=== PATIENT | female | born 1955 | race Caucasian/White ===

== ENCOUNTER → 2016-11-18 | Outpatient (CLI) | payer MEDICAID, MEDICARE | LOC: WI 14:17 | PROVIDERS: ATTEND Physician Assistant | DX: Z12.31 Encounter for screening mammogram for malignant neoplasm of breast (principal) | CPT/HCPCS: 77067; G0202 ==

== ENCOUNTER 2017-10-15 14:31 | Emergency (ER) | payer MEDICARE, MEDICAID ==
[2017-10-15 14:59] VITALS: BP 107/80
--- NOTE | 2017-10-15 15:31 | ER Document Report ---
ED Medical Screen (RME) - General Chief Complaint: Fall Injury Stated Complaint: FALL/LEFT KNEE PAIN Time Seen by Provider: 10/15/17 15:29 Mode of Arrival: Wheelchair Information source: Patient Notes: Pt tripped and fell in her house, tripped on something, hurt her left knee. no n /t, no radiating pain, no dizziness, etc. TRAVEL OUTSIDE OF THE [place] IN LAST 30 DAYS: No - Related Data Allergies/Adverse Reactions: ibuprofen [Ibuprofen] Allergy (Verified 10/15/17 14:32) Vomiting Past Medical History - General Information source: Patient - Past Medical History Cardiac Medical History: Reports: Hx Hypercholesterolemia, Hx Hypertension Pulmonary Medical History: Denies: Hx Tuberculosis Endocrine Medical History: Reports: Hx Diabetes Mellitus Type 2 Psychiatric Medical History: Reports: Hx Depression Denies: Hx Bipolar Disorder, Hx Post Traumatic Stress Disorder, Hx Schizophrenia Past Surgical History: Reports: Hx Orthopedic Surgery - rt knee, lt hand, lt shoulder cysts. Denies: Hx Appendectomy, Hx Bowel Surgery, Hx Section , Hx Cholecystectomy, Hx Coronary Artery Bypass Graft, Hx Gastric Bypass Surgery , Hx Herniorrhaphy, Hx Hysterectomy, Hx Mastectomy, Hx Pacemaker, Hx Tubal Ligation - Immunizations Hx Diphtheria, Pertussis, Tetanus Vaccination: Yes Review of Systems - Review of Systems Musculoskeletal: See HPI Physical Exam - Vital signs Vitals: Temp Pulse Resp BP Pulse Ox 98.0 F 55 L 14 107/80 97 10/15/17 14:57 10/15/17 14:57 10/15/17 14:57 10/15/17 14:57 10/15/17 14:57 - Notes Notes: general: nad extremities: tender to anterior left knee, no ramirez's cyst noted Course - Vital Signs Vital signs: Temp Pulse Resp BP Pulse Ox 98.0 F 55 L 14 107/80 97 10/15/17 14:57 10/15/17 14:57 10/15/17 14:57 10/15/17 14:57 10/15/17 14:57
--- NOTE | 2017-10-15 16:05 | ER Document Report ---
HPI - HPI Patient complains to provider of: knee pain Pain Level: 5 Context: Patient is 62-year-old female who presents with left knee pain after a fall. Patient is a history of arthritis in the sleep. She has been able to bear weight on it but with pain. Pain worse with movement. She has not taken anything for pain prior to arrival. History of diabetes, Hypertension - REPRODUCTIVE Reproductive: DENIES: : Past Medical History - General Information source: Patient - Social History Smoking Status: Smoker,Current Status Unk Family History: Reviewed & Not Pertinent - Past Medical History Cardiac Medical History: Reports: Hx Hypercholesterolemia, Hx Hypertension Pulmonary Medical History: Denies: Hx Tuberculosis Endocrine Medical History: Reports: Hx Diabetes Mellitus Type 2 Psychiatric Medical History: Reports: Hx Depression Denies: Hx Bipolar Disorder, Hx Post Traumatic Stress Disorder, Hx Schizophrenia Past Surgical History: Reports: Hx Orthopedic Surgery - rt knee, lt hand, lt shoulder cysts. Denies: Hx Appendectomy, Hx Bowel Surgery, Hx Section , Hx Cholecystectomy, Hx Coronary Artery Bypass Graft, Hx Gastric Bypass Surgery , Hx Herniorrhaphy, Hx Hysterectomy, Hx Mastectomy, Hx Pacemaker, Hx Tubal Ligation - Immunizations Hx Diphtheria, Pertussis, Tetanus Vaccination: Yes Hx Pneumococcal Vaccination: 12/13/11 Vertical Provider Document - CONSTITUTIONAL Agree With Documented VS: Yes Notes: PHYSICAL EXAM GENERAL: Alert, interacts well. EXTREMITIES: Moves all extremities spontaneously negative anterior posterior drawer test. Hip full range of motion nontender. Ankle full range of motion nontender no evidence of deformity guarding of the left knee. Full range of motion . No edema, radial and dorsalis pedis pulses 2/4 bilaterally. No cyanosis. NEUROLOGICAL: Alert and oriented x4. Normal speech. PSYCH: Normal affect, normal mood. SKIN: Warm, dry, normal turgor. No rashes or lesions noted. - INFECTION CONTROL TRAVEL OUTSIDE OF THE [place] IN LAST 30 DAYS: No - RESPIRATORY O2 Sat by Pulse Oximetry: 97 Course - Re-evaluation Re-evalutation: 10/15/17 16:43 Patient is 62-year-old female who is hemodynamically stable, no acute distress with a history of osteoarthritis in this affected knee. No evidence of a septic joint, gout flare, dislocation, or fracture on exam and imaging. Vitals wnl. At this time, I do not see an indication for labs or further imaging.Patient is declining crutches at this time. Will discharge with conservative measures, return precautions, and follow-up recommendations. - Vital Signs Vital signs: Temp Pulse Resp BP Pulse Ox 98.0 F 55 L 14 107/80 97 10/15/17 14:57 10/15/17 14:57 10/15/17 14:57 10/15/17 14:57 10/15/17 14:57 - Diagnostic Test Radiology reviewed: Image reviewed, Reports reviewed Discharge - Discharge Clinical Impression: Knee pain Qualifiers: Chronicity: chronic Laterality: left Qualified Code(s): M25.562 - Pain in left knee; G89.29 - Other chronic pain; G89.29 - Other chronic pain Condition: Good Disposition: HOME, SELF-CARE Instructions: Arthritis ([facility]), Ice & Elevation ([facility]) Prescriptions: Naproxen [Naprosyn 375 Mg Tablet] 375 mg PO BID #20 tablet
--- NOTE | 2017-10-15 16:13 | RADIOLOGY REPORT (SQ) ---
EXAM DESCRIPTION: KNEE LEFT 4 VIEW COMPLETED DATE/TIME: 10/15/2017 3:59 pm REASON FOR STUDY: left knee pain COMPARISON: None. NUMBER OF VIEWS: Four views. TECHNIQUE: AP, lateral, and both oblique radiographic images acquired of the left knee. LIMITATIONS: None. FINDINGS: MINERALIZATION: Osteopenia. BONES: No acute fracture or dislocation. No worrisome bone lesions. JOINT: Severe tricompartmental degenerative changes involving predominantly the patellofemoral medial compartments. Small joint effusion. SOFT TISSUES: No soft tissue swelling. No radio-opaque foreign body. OTHER: No other significant finding. IMPRESSION: Severe tricompartmental degenerative changes with small joint effusion. No evidence of acute osseous injury. TECHNICAL DOCUMENTATION: JOB ID: [id number] [employer]- All Rights Reserved
[2017-10-15] MEDS ORDERED: NAPROXEN 375 MG TABLET PO ONE (16:45)
[2017-10-15] MEDS ORDERED: ACETAMINOPHEN 325 MG TABLET PO ONE (18:07)
== END 2017-10-15 18:00 | disposition home or self-care (01) ==
LOC: ER 14:31
DX: M17.12 Unilateral primary osteoarthritis, left knee (principal); M25.562 Pain in left knee; G89.29 Other chronic pain; E11.9 Type 2 diabetes mellitus without complications; I10 Essential (primary) hypertension
CPT/HCPCS: 99283; 73562; A9270

== ENCOUNTER 2017-11-07 08:05 | Inpatient (IN) | payer MEDICARE, MEDICAID ==
--- NOTE | 2017-10-26 13:56 | RADIOLOGY REPORT (SQ) ---
EXAM DESCRIPTION: CHEST PA/LATERAL COMPLETED DATE/TIME: 10/26/2017 1:39 pm REASON FOR STUDY: PRE OP COMPARISON: December 2011 EXAM PARAMETERS: NUMBER OF VIEWS: two views TECHNIQUE: Digital Frontal and Lateral radiographic views of the chest acquired. RADIATION DOSE: NA LIMITATIONS: none FINDINGS: LUNGS AND PLEURA: No opacities, masses or pneumothorax. No pleural effusion. MEDIASTINUM AND HILAR STRUCTURES: No masses or contour abnormalities. HEART AND VASCULAR STRUCTURES: Heart normal size. No evidence for failure. BONES: No acute findings. HARDWARE: None in the chest. OTHER: No other significant finding. IMPRESSION: NO SIGNIFICANT RADIOGRAPHIC FINDING IN THE CHEST. TECHNICAL DOCUMENTATION: JOB ID: [id number] [employer]- All Rights Reserved
[2017-11-03 19:18] LABS: APPEARANCE,URINE TURBID; BILIRUBIN,URINE NEGATIVE (NEGATIVE); GLUCOSE, URINE >=500 mg/dL (NEGATIVE); KETONES,URINE NEGATIVE (NEGATIVE); LEUKOCYTE ESTERASE,URINE SMALL (NEGATIVE); NITRITE,URINE NEGATIVE (NEGATIVE); PROTEIN,URINE NEGATIVE (NEGATIVE); URINE SPECIFIC GRAVITY 1.021; UROBILINOGEN,URINE NEGATIVE mg/dL (<2.0)
[2017-11-03 19:19] LABS: COLOR,URINE LIGHT YELLOW
--- NOTE | 2017-11-04 22:36 | Physician Advisory Note ---
Physician Advisor ProgressNote .: Pursuant to the plan for [facility], I have reviewed the medical record for this patient. Physician Advisor Statement: Nice documentation of pt's functional disability, options tried, x-ray findings , showing indication for surgery - & ongoing pain worsened by ADLs. Please make sure to document: 1. What can patient NOT DO BECAUSE OF HER KNEE PAIN, or what ADLs are INTERFERED WITH BY HER KNEE PAIN? (Payers don't just want to know what causes more pain - they want to hear that the patient's FUNCTION is impaired - before agreeing to pay for surgery.) 2. "I do not expect this patient will be able to recover quickly enough for safe discharge in less than 2 midnights because " (& each day's note needs to give specifics on clinical reasons pt isn't yet safe for d/c: "need to continue to monitor ", "I AM CONCERNED ABOUT ", "high risk for ", ...) Status: 62yo with super-morbid obesity/BMI 52.4, DM-2 w/peripheral neuropathy, hyperlipidemia, depression, Lt knee arthroscopy, with PROMIS function score of 26 - significantly limited climbing 1 flight of stairs or bending/kneeling, even difficulty getting on & off a toilet. Was borderline anemic at last check (2011) here with Hgb 12.1. This patient clearly has a significantly increased anesthesia risk, along with significant co-morbidities, and has a strong chance of needing rehab stay after surgery. Appropriate to start in Inpatient status. Thanks! CK
[~2017-11-07 08:05] MED LIST: BUPIVACAINE INJ/PF LIPOSOME/PF 266 MG/20 ML SDV IJ PRN; BUPIVACAINE INJ/PF LIPOSOME/PF 266 MG/20 ML SDV ONE; CEFAZOLIN INJ 1 GM VIAL IV PRN; IBUPROFEN 800 MG/NS 250 ML IV PRN; LACTATED RINGERS 1000 ML IV PRN; LANSOPRAZOLE 15 MG TAB.RAP.DR PO PRN; OXYCODONE HCL SR 10 MG TABLET PO PRN; RINGERS SOLUTION,LACTATED 1,000 ML IV PRN; THROMBIN (BOVINE) 5000 UNIT EPITAXIS KIT ONE; THROMBIN (BOVINE) TOPICAL 20000 UNIT VIAL ONE; VANCOMYCIN HCL 1,000 MG in DEXTROSE 5%-WATER 250 ML IV PRN
[2017-11-07] MEDS ORDERED: MIDAZOLAM 2 MG/2 ML INJ ONE ×2 (08:52)
[2017-11-07] MEDS ORDERED: FENTANYL CITRATE INJ/PF 100 MCG/2 ML AMPUL ONE ×2 (08:52)
[2017-11-07] MEDS ORDERED: EPHEDRINE SULFATE INJ 50 MG/1 ML AMPULE ONE (08:52)
[2017-11-07] MEDS ORDERED: TRANEXAMIC ACID INJ/PF 1,000 MG/10 ML SDV IV ONE ×2 (08:53→13:00)
[2017-11-07] MEDS ORDERED: PROPOFOL INJ 200 MG/20 ML VIAL IV ONE (08:53)
[2017-11-07] MEDS ORDERED: ONDANSETRON HCL INJ/PF 4 MG/2 ML SDV ONE (08:53)
[2017-11-07] MEDS ORDERED: DIPHENHYDRAMINE HCL 50 MG/ML VIAL IV PRN ×2 (10:08→11:22)
[2017-11-07] MEDS ORDERED: FENTANYL CITRATE INJ/PF 100 MCG/2 ML AMPUL IV PRN ×3 (10:08)
[2017-11-07] MEDS ORDERED: WALKER MC PRN (11:20)
--- NOTE | 2017-11-07 11:20 | Operative Report ---
Operative Report DATE OF SURGERY: 11/07/17 PREOPERATIVE DIAGNOSIS: Left knee arthritis OPERATION: Left knee arthroplasty SURGEON: WILMER MOREJON 1ST FLOW MACHINE OPERATOR: ZENAIDA WALLACE ANESTHESIA: Spinal TISSUE REMOVED OR ALTERED: Bone to pathology ESTIMATED BLOOD LOSS: 100 PROCEDURE: Implants used: Femur: Riddhi triathlon size 5 CR femur Tibia: 6 tibia Tibial liner: 9 mm CS insert Patella: 35 mm oval patella Procedure with the patient supine on the operating table the left the limb is prepped and draped in a sterile fashion. The limb was elevated for exsanguination and the tourniquet inflated to 280 torr. A standard midline median parapatellar approach the knee is taken. Access is gained to the femoral canal through the intercondylar notch. Intramedullary alignment instrumentation used to resect 10 mm of distal femur in 5 of valgus. Sizing guide indicated a size 5 femur. Appropriate cutting jig is then used to fashion anterior posterior and chamfer cuts. A trial reduction femurs performed and this is judged to be adequate. Attention was next turned to the tibia. Using an extra medullary alignment system 9 millimeters was resected off the lateral tibial plateau. This is sized to a size 6 tibia. A trial reduction was now performed with a 5 femur and a 6 tibia using a 9 millimeters spacer. It is full extension and central patellofemoral tracking. The articular surface the patella was next resected using an oscillating saw. All trial implants were removed. Polymethylmethacrylate is mixed and used to cement the above implants in place. On adequate curing the cement excess cement was removed the tourniquet was deflated hemostasis obtained the wound is then closed in layers using interrupted Vicryl followed by dorothy. A sterile compressive dressing was applied and the patient returned to recovery room in satisfactory condition.
[2017-11-07] MEDS ORDERED: MORPHINE SULFATE 10 MG/ML INJ IV PRN ×2 (11:22)
[2017-11-07] MEDS ORDERED: ZOLPIDEM TARTRATE 5 MG TABLET PO PRN (11:22)
[2017-11-07] MEDS ORDERED: MAG HYDROX/AL HYDROX/SIMETH SUSP 30 ML UDCUP PO PRN (11:22)
[2017-11-07] MEDS ORDERED: ONDANSETRON HCL INJ/PF 4 MG/2 ML SDV IV PRN (11:22)
[2017-11-07] MEDS ORDERED: MORPHINE SULFATE 10 MG/ML INJ IM PRN (11:22)
[2017-11-07] MEDS ORDERED: ONDANSETRON 4 MG TAB.RAPDIS PO PRN (11:22)
[2017-11-07] MEDS ORDERED: OXYCODONE HCL IR 5 MG TABLET PO PRN (11:22)
--- NOTE | 2017-11-07 12:22 | RADIOLOGY REPORT (SQ) ---
EXAM DESCRIPTION: KNEE LEFT 2 VIEWS COMPLETED DATE/TIME: 11/07/2017 12:10 pm REASON FOR STUDY: Post OP -Long Cassette in PACU M17.12 UNILATERAL PRIMARY OSTEOARTHRITIS, LEFT KNE E COMPARISON: None. NUMBER OF VIEWS: Two view(s). TECHNIQUE: Digital radiographic images of the left knee post-procedure. LIMITATIONS: None. FINDINGS: BONES: No worrisome or unexpected findings post-procedure. DEVICE: Total knee arthroplasty. SOFT TISSUES: No worrisome findings. Expected postoperative soft tissue changes. IMPRESSION: SATISFACTORY POSTOPERATIVE LEFT KNEE. TECHNICAL DOCUMENTATION: JOB ID: [id number] [employer]- All Rights Reserved
--- NOTE | 2017-11-07 12:51 | EKG REPORT ---
SEVERITY:- ABNORMAL ECG - SINUS RHYTHM INCOMPLETE LEFT BUNDLE BRANCH BLOCK LEFT VENTRICULAR HYPERTROPHY ANTERIOR Q WAVES, POSSIBLY DUE TO LVH : Confirmed by: Janak Sloan MD 07-Nov-2017 12:50:39
[2017-11-07] MEDS: GABAPENTIN 300 MG CAPSULE PO SCH ×2 (13:48→21:18)
[2017-11-07] MEDS ORDERED: ACETAMINOPHEN 100 ML IV ONE (17:22)
[2017-11-07] MEDS: MORPHINE SULFATE 10 MG/ML INJ IV PRN ×2 (18:07→22:36)
[2017-11-07] MEDS: GLIPIZIDE XL 5 MG TAB.ER.24 PO SCH (21:18)
[2017-11-07] MEDS: METFORMIN HCL 500 MG TABLET PO SCH (21:18)
[2017-11-07] MEDS: OXYCODONE HCL SR 10 MG TABLET PO SCH (21:18)
[2017-11-07] MEDS ORDERED: VANCOMYCIN HCL 1,000 MG in DEXTROSE 5%-WATER 250 ML IV ONE (23:00)
[2017-11-08] MEDS: MORPHINE SULFATE 10 MG/ML INJ IV PRN ×3 (01:58→08:43)
[2017-11-08] MEDS ORDERED: ACETAMINOPHEN 325 MG TABLET PO PRN (02:00)
[2017-11-08] MEDS: LANSOPRAZOLE 30 MG TAB.RAP.DR PO SCH (05:38)
[2017-11-08] MEDS: LEVOTHYROXINE SODIUM 0.05 MG TABLET PO SCH (05:38)
[2017-11-08] MEDS: GABAPENTIN 300 MG CAPSULE PO SCH ×3 (05:38→22:03)
--- NOTE | 2017-11-08 06:46 | PDOC PROGRESS REPORT ---
Subjective Progress Note for:: 11/08/17 Reason For Visit: M17.12 UNILATERAL PRIMARY OSTEOARTHRITIS, LEFT KN 62-year-old white female postop day #1 status post left knee arthroplasty Physical Exam Vital Signs: Temp Pulse Resp BP Pulse Ox 36.7 C 76 20 107/71 98 11/08/17 00:00 11/08/17 00:00 11/08/17 00:00 11/08/17 00:00 11/08/17 00:00 Intake & Output 11/06/17 11/07/17 11/08/17 06:59 06:59 06:59 Intake Total 4050 Output Total 2049 Balance 2000 General appearance: PRESENT: mild distress Head exam: PRESENT: normocephalic Respiratory exam: PRESENT: unlabored Cardiovascular exam: PRESENT: RRR Pulses: PRESENT: +1 pedal pulses bilateral Vascular exam: PRESENT: normal capillary refill GI/Abdominal exam: PRESENT: soft Rectal exam: PRESENT: deferred Extremities exam: PRESENT: other - Left lower extremity dressing clean dry and intact. Distal neurovascular examination is intact. Neurological exam: PRESENT: alert, awake, oriented to person, oriented to place , oriented to time, oriented to situation. ABSENT: motor sensory deficit Psychiatric exam: PRESENT: appropriate affect, normal mood. ABSENT: homicidal ideation, suicidal ideation Skin exam: PRESENT: dry, intact, warm. ABSENT: cyanosis, rash Results Impressions: Chest X-Ray 10/26/17 11:27 IMPRESSION: NO SIGNIFICANT RADIOGRAPHIC FINDING IN THE CHEST. Knee X-Ray 11/07/17 11:23 IMPRESSION: SATISFACTORY POSTOPERATIVE LEFT KNEE. Status: Imported from PACS Assessment & Plan - Diagnosis (1) Arthritis of left knee Is this a current diagnosis for this admission?: Yes Plan: 62-year-old female postop day 1 from left knee arthroplasty. Patient ambulated only 10 feet yesterday. Anticipate discharge home when her functional capacity permits. (2) Diabetes Plan: Blood glucoses approximately 179. Diabetes is reasonably well controlled on current sliding scale. - Time Time Spent with patient: 15-24 minutes Anticipated discharge: Home with Homehealth Within: within 24 hours
[2017-11-08 07:02] LABS: HEMATOCRIT 35.5 % (36.0-47.0); HEMOGLOBIN 12.3 g/dL (12.0-15.5); MEAN CORPUSCULAR HEMOGLOBIN 31.3 pg (27.0-33.4); MEAN CORPUSCULAR HGB CONC 34.7 g/dL (32.0-36.0); MEAN CORPUSCULAR VOLUME 90 fl (80-97); PLATELET COUNT 325 10^3/uL (150-450); RED BLOOD COUNT 3.92 10^6/uL (3.72-5.28); RED CELL DISTRIBUTION WIDTH 13.6 % (11.5-14.0); WHITE BLOOD COUNT 9.1 10^3/uL (4.0-10.5)
[2017-11-08 07:17] LABS: ANION GAP 9 (5-19); BLOOD UREA NITROGEN 15 mg/dL (7-20); CALCIUM 9.5 mg/dL (8.4-10.2); CARBON DIOXIDE 26 mmol/L (22-30); CHLORIDE 100 mmol/L (98-107); GLUCOSE 175 mg/dL (75-110); POTASSIUM 4.5 mmol/L (3.6-5.0); SODIUM 134.6 mmol/L (137-145)
[2017-11-08] MEDS: GLIPIZIDE XL 5 MG TAB.ER.24 PO SCH ×2 (09:56→22:03)
[2017-11-08] MEDS: OXYCODONE HCL SR 10 MG TABLET PO SCH ×2 (09:56→22:14)
[2017-11-08] MEDS: ASPIRIN 81 MG TABLET, ENT COATED PO SCH (09:57)
[2017-11-08] MEDS: FLUOXETINE HCL 20 MG CAPSULE PO SCH (09:58)
[2017-11-08] MEDS: LISINOPRIL 5 MG TABLET PO SCH (13:37)
[2017-11-08] MEDS: OXYCODONE HCL IR 5 MG TABLET PO PRN (13:41)
[2017-11-08] MEDS ORDERED: ATORVASTATIN CALCIUM 40 MG TABLET PO SCH (22:00)
[2017-11-08] MEDS: METFORMIN HCL 500 MG TABLET PO SCH (22:14)
[2017-11-09] MEDS: OXYCODONE HCL IR 5 MG TABLET PO PRN ×2 (02:19→06:12)
[2017-11-09] MEDS: GABAPENTIN 300 MG CAPSULE PO SCH (05:56)
[2017-11-09] MEDS: LANSOPRAZOLE 30 MG TAB.RAP.DR PO SCH (05:56)
[2017-11-09] MEDS: LEVOTHYROXINE SODIUM 0.05 MG TABLET PO SCH (05:56)
[2017-11-09 06:36] LABS: HEMOGLOBIN 12.5 g/dL (12.0-15.5); MEAN CORPUSCULAR HEMOGLOBIN 30.9 pg (27.0-33.4); MEAN CORPUSCULAR HGB CONC 33.8 g/dL (32.0-36.0); MEAN CORPUSCULAR VOLUME 91 fl (80-97); PLATELET COUNT 326 10^3/uL (150-450); RED BLOOD COUNT 4.05 10^6/uL (3.72-5.28); RED CELL DISTRIBUTION WIDTH 13.6 % (11.5-14.0); WHITE BLOOD COUNT 11.6 10^3/uL (4.0-10.5)
--- NOTE | 2017-11-09 07:17 | PDOC PROGRESS REPORT ---
Subjective Progress Note for:: 11/09/17 Subjective:: 62-year-old white female 2 days status post total left knee arthroplasty. Patient sitting upright in hospital bed with bilateral lower extremities over the side. Patient reports she was comfortable overnight and was happy to receive about this morning. Reason For Visit: M17.12 UNILATERAL PRIMARY OSTEOARTHRITIS, LEFT KN Physical Exam Vital Signs: Temp Pulse Resp BP Pulse Ox 37.9 C 92 20 127/72 H 96 11/09/17 00:00 11/09/17 00:00 11/09/17 00:00 11/09/17 00:00 11/09/17 00:00 Intake & Output 11/08/17 11/09/17 11/10/17 06:59 06:59 06:59 Intake Total 4590 1468 Output Total 2050 Balance 2540 1468 Weight 142.88 kg General appearance: PRESENT: no acute distress, well-developed, well-nourished Head exam: PRESENT: atraumatic, normocephalic Respiratory exam: PRESENT: unlabored Pulses: PRESENT: normal dorsalis pedis pul, +2 pedal pulses bilateral Additional comments: Patient sitting upright with legs over side of hospital bed. Her postoperative compression dressing is clean dry and intact. This is removed and underlying OpSite dressing is clean dry and intact and this is left in place. She has minimal pedal edema and brisk capillary refill to toes on bilateral lower extremities. Her leg lengths are equal and her distal neurovascular exam is intact. Musculoskeletal exam: PRESENT: ambulatory Additional comments: Patient makes slow progress with physical therapy ambulating 70 feet independently. She will continue to work with physical therapy throughout her stay in the hospital. Neurological exam: PRESENT: alert, awake, oriented to person, oriented to place , oriented to time, oriented to situation, CN II-XII grossly intact. ABSENT: motor sensory deficit Psychiatric exam: PRESENT: appropriate affect, normal mood. ABSENT: homicidal ideation, suicidal ideation Skin exam: PRESENT: dry, intact, warm. ABSENT: cyanosis, rash Results Laboratory Results: 11/09/17 06:21 11/08/17 05:49 11/08/17 11/09/17 05:49 06:21 WBC 11.6 H RBC 4.05 Hgb 12.5 Hct 37.0 MCV 91 MCH 30.9 MCHC 33.8 RDW 13.6 Plt Count 326 Sodium 134.6 L Potassium 4.5 Chloride 100 Carbon Dioxide 26 Anion Gap 9 BUN 15 Creatinine 0.94 Est GFR ( Amer) > 60 Est GFR (Non-Af Amer) > 60 Glucose 175 H Calcium 9.5 Impressions: Chest X-Ray 10/26/17 11:27 IMPRESSION: NO SIGNIFICANT RADIOGRAPHIC FINDING IN THE CHEST. Knee X-Ray 11/07/17 11:23 IMPRESSION: SATISFACTORY POSTOPERATIVE LEFT KNEE. Assessment & Plan - Diagnosis (1) Arthritis of left knee Is this a current diagnosis for this admission?: Yes - Plan Summary Plan Summary: 62-year-old white female 2 days status post total left knee arthroplasty. Patient's compression dressing is removed and underlying OpSite dressing is clean dry and intact and is left in place. She makes slow progress with physical therapy ambulating 70 feet independently. She will continue to work with physical therapy throughout her stay at the hospital. Patient has tentatively made the decision to be discharged to a fdc facility. At this time she is not fully committed to the fdc facility or being discharged to her home. Discharge planning and nursing staff were advised to clinical mental health counselor patient on risks and benefits of these possibilities. She will make her decision by the end of the day and will likely be discharged to either fdc facility or her home tomorrow.
[2017-11-09] MEDS: OXYCODONE HCL SR 10 MG TABLET PO SCH (10:11)
[2017-11-09] MEDS: ASPIRIN 81 MG TABLET, ENT COATED PO SCH (10:12)
[2017-11-09] MEDS: GLIPIZIDE XL 5 MG TAB.ER.24 PO SCH (10:12)
[2017-11-09] MEDS: FLUOXETINE HCL 20 MG CAPSULE PO SCH (10:12)
[2017-11-09] MEDS: LISINOPRIL 5 MG TABLET PO SCH (10:13)
[2017-11-09 12:21] VITALS: BP 110/68
--- NOTE | 2017-11-11 06:47 | PDOC DISCHARGE SUMMARY ---
Discharge Summary (SDC) - Discharge Final Diagnosis: Left knee arthritis Date of Surgery: 11/07/17 Discharge Date: 11/10/17 Condition: Good Forms: Discharge POC-Adult Referrals: [facility] [Outside] - 11/10/17 [facility] [Outside] - 11/10/17 WILMER MOREJON MD [ACTIVE STAFF] - 11/22/17 1:00 pm Discharge Diet: As Tolerated, Regular Respiratory Treatments at Home: Deep Breathing/Coughing Discharge Activity: Activity As Tolerated, Balance Activity w/Rest, No Driving, No tub bath Home Care Assistance: Home Health Activities Provided by Home Health Agency: ADL's, Detention, Physical Therapy Report the Following to Your Physician Immediately: Increase in Pain, Fever over 101 Degrees, Unusual Bleeding, Drainage-Yellow, Drainage-Ayala, Drainage- Green, Drainage-Foul Smelling
== END 2017-11-09 13:47 | disposition home health service (06) | DRG 470 ==
LOC: INOR 08:05 → UNDOADMIN 08:05 → EDSTATUS 10:00 → INOR 12:33 → 4S 12:33
PROVIDERS: ADMIT Orthopaedic Surgery; ATTEND Orthopaedic Surgery
PROC: 0SRD0J9 Replacement of Left Knee Joint with Synthetic Substitute, Cemented, Open Approach (ICD-10-PCS; principal; 2017-11-07 10:00)
DX: M17.12 Unilateral primary osteoarthritis, left knee (principal); Z68.43 Body mass index [BMI] 50.0-59.9, adult; E66.9 Obesity, unspecified; E11.42 Type 2 diabetes mellitus with diabetic polyneuropathy; E78.5 Hyperlipidemia, unspecified; Z87.891 Personal history of nicotine dependence; Z88.6 Allergy status to analgesic agent
CPT/HCPCS: 01402; 36415; 71046; 80048; 81001; 82962; 85027; 88305; 88311; 93005; 93010; 94799; C2625; C9290; G8978-GP; G8979-GP; G8987-GO; G8988-GO; J0131; J0690; J1741; J2250; J2270; J2405; J2704; J3010; J3370; J3490; J7050; J7060